=== PATIENT | female | born 1970 | race Caucasian/White ===

== ENCOUNTER 2022-07-18 00:16 | Day surgery (SDC) | payer OTHER, SELFPAY ==
[2022-07-09 08:33] VITALS: BMI 29.9
[2022-07-18 09:16] VITALS: BP 128/97; PULSE 70; RESP 16; TEMP 36.3; O2SAT 99; BMI 28.3
--- NOTE | 2022-07-18 09:24 | PM.HPGS ---
History of Present Illness History of Present Illness Consent: Risks, benefits, and alternatives have been discussed and questions answered. Patient agrees to proceed with procedure. Chief complaint: neoplasm screening Narrative: Eloisa Ruiz is a 52 year old female Referred for colon cancer screening. Review of Systems Review of Systems: All systems reviewed & are unremarkable except as noted in HPI and below PMFSH Past Medical History Medical History Encounter for IUD insertion 02/12/17 Mirena insertion Encounter for screening examination for sexually transmitted disease Herpes simplex type 1 antibody positive Hypertension Melanoma Paratubal cyst (~05/21/02) drained after c/s Remove/insert IUD Screening mammogram, encounter for Surgical History Surgical History History of 05/11/98 primary c/s Delonte size greater than dates 05/21/02 rpt c/s Bladimir no complications, drainage of paratubal cyst after c/s, as well of keloid scar revision at time of c/s History of dilation and curettage 12/12/16 suction d&c/exploratory lap/lt salpingectomy--POC, benign serous cystadenoma, benign tubal tissue History of exploratory laparotomy (12/12/16) suction d&c/exploratory lap/lt salpingectomy--POC, benign serous cystadenoma, benign tubal tissue History of gynecological procedure (03/05/22) mirena iud removal and reinsertion of new device History of local excision of skin lesion (~2009) melanoma removed from back History of unilateral salpingectomy (12/12/16) suction d&c/exploratory lap/lt salpingectomy--POC, benign serous cystadenoma, benign tubal tissue Family History Family History Father Acute myocardial infarction Grandparent Malignant tumor of ovary paternal grandmother Social History Social History Smoking status: Never smoker Alcohol intake: never Substance use: never Substance use type: does not use Living arrangements: with family Additional living arrangements comments: Occupation/Education: occupation Additional occupation/education comments: inventory control Gender identity (if verbalized by the patient): Female Sexual Orientation (if Verbalized by the Patient): Straight or Heterosexual Spiritual care concerns: No Meds Home Medications and Allergies Home Medications Medication Instructions Recorded Confirmed Type levonorgestrel 21 mcg/24 hours (8 1 device intrauterine ONCE 03/05/22 07/18/22 History yrs) 52 mg intrauterine device (Mirena) lisinopril 40 mg tablet 40 mg PO DAILY 03/05/22 07/18/22 History valacyclovir 500 mg tablet 500 mg PO DAILY 03/05/22 07/18/22 History amlodipine 5 mg tablet 5 mg PO DAILY 07/09/22 07/18/22 History hydrochlorothiazide 25 mg tablet 25 mg PO DAILY 07/09/22 07/18/22 History Allergies Allergy/AdvReac Type Severity Reaction Status Date / Time No Known Allergies Allergy Verified 07/18/22 09:11 Vital Signs Vital Signs - 24 hr 07/18/22 09:16 Temperature 36.3 C L Pulse Rate 70 Respiratory Rate 16 Blood Pressure 128/97 H Pulse Oximetry 99 Oxygen Delivery Room Air Exam Const: General: alert Orientation/consciousness: patient oriented x3 Resp: Auscultation: clear to auscultation bilaterally Cardio: Rhythm: regular rhythm GI: GI Palp: Yes Soft to palpation and No Tenderness to palpation present (GI) Neuro: General: patient oriented x3 Assessment and Plan Assessment and plan (1) Colon cancer screening: Code(s): Z12.11 - Encounter for screening for malignant neoplasm of colon Status: Acute Assessment and Plan: Colonoscopy with possible biopsy or polypectomy or cautery or injection of substances.
[2022-07-18] MEDS: LACTATED RINGERS 1,000 ML 150 ML IV CONT (09:25)
--- NOTE | 2022-07-18 09:31 | WPDANESEPPF ---
Anes - Initial Pre Proc Eval Procedure: Operation Date: 07/18/22 10:30 Proposed Procedures p Screening Colonoscopy - Corey Hernandez MD Date/Time: 07/18/22 09:31 Surgeon: Corey Hernandez MD Pre Op Diagnosis: neoplasm screening Patient Data Age: 52 Gender: F Height: 1.75 m Weight: 86.9 kg Last Vital Signs Temp 97.3 F L 07/18/22 09:16 Pulse 70 07/18/22 09:16 Resp 16 07/18/22 09:16 BP 128/97 H 07/18/22 09:16 Pulse Ox 99 07/18/22 09:16 O2 Del Method Room Air 07/18/22 09:16 Allergies Allergy/AdvReac Type Severity Reaction Status Date / Time No Known Allergies Allergy Verified 07/18/22 09:11 Home Medications Medication Instructions Recorded Confirmed Type levonorgestrel 21 mcg/24 hours (8 1 device intrauterine ONCE 03/05/22 07/18/22 History yrs) 52 mg intrauterine device (Mirena) lisinopril 40 mg tablet 40 mg PO DAILY 03/05/22 07/18/22 History valacyclovir 500 mg tablet 500 mg PO DAILY 03/05/22 07/18/22 History amlodipine 5 mg tablet 5 mg PO DAILY 07/09/22 07/18/22 History hydrochlorothiazide 25 mg tablet 25 mg PO DAILY 07/09/22 07/18/22 History Patient hx anesthesia problems: none Family hx anesthesia problems: none Results Review: All pre-operative results and documents have been reviewed as part of the pre-operative evaluation. [facility], [facility] Past Medical History Medical History Encounter for IUD insertion 02/12/17 Mirena insertion Encounter for screening examination for sexually transmitted disease Herpes simplex type 1 antibody positive Hypertension Melanoma Paratubal cyst (~05/21/02) drained after c/s Remove/insert IUD Screening mammogram, encounter for Surgical History Surgical History History of 05/11/98 primary c/s Delonte size greater than dates 05/21/02 rpt c/s Bladimir no complications, drainage of paratubal cyst after c/s, as well of keloid scar revision at time of c/s History of dilation and curettage 12/12/16 suction d&c/exploratory lap/lt salpingectomy--POC, benign serous cystadenoma, benign tubal tissue History of exploratory laparotomy (12/12/16) suction d&c/exploratory lap/lt salpingectomy--POC, benign serous cystadenoma, benign tubal tissue History of gynecological procedure (03/05/22) mirena iud removal and reinsertion of new device History of local excision of skin lesion (~2009) melanoma removed from back History of unilateral salpingectomy (12/12/16) suction d&c/exploratory lap/lt salpingectomy--POC, benign serous cystadenoma, benign tubal tissue Family History Family History Father Acute myocardial infarction Grandparent Malignant tumor of ovary paternal grandmother Social History Social History Smoking status: Never smoker Alcohol intake: never Substance use: never Substance use type: does not use Living arrangements: with family Additional living arrangements comments: Occupation/Education: occupation Additional occupation/education comments: inventory control Gender identity (if verbalized by the patient): Female Sexual Orientation (if Verbalized by the Patient): Straight or Heterosexual Spiritual care concerns: No Anes - Eval Final PreProcedure Day of Procedure 07/18/22 09:31 Patient weight: normal Heart: regular rate and rhythm Lungs: clear to auscultation Airway: Mallampati scale class II Neurological: alert and oriented Last oral intake: >/= 8 hours ASA classification: II Emergent: no Anesthetic plan: proceed Anesthesia type and monitoring: general GIVS and standard monitoring Results Review: All pre-operative results and documents have been reviewed as part of the pre-operative evaluation. Informed Consent: The patient's anesthetic plan and its at
[2022-07-18 10:16] VITALS: BP 107/69; PULSE 50; RESP 16; O2SAT 99
[2022-07-18 10:26] VITALS: BP 131/107; PULSE 68; RESP 32; O2SAT 100
[2022-07-18 10:36] VITALS: BP 123/89; PULSE 63; RESP 21; O2SAT 100
== END 2022-07-18 10:43 | disposition home or self-care (01) ==
PROVIDERS: PCP Internal Medicine; Visit Provider Internal Medicine Gastroenterology
PROC: 0DJD8ZZ Inspection of Lower Intestinal Tract, Via Natural or Artificial Opening Endoscopic (ICD-10-PCS; CPT 45378; principal; 2022-07-18 10:30)
DX: Z12.11 Encounter for screening for malignant neoplasm of colon (principal); I10 Essential (primary) hypertension; B00.9 Herpesviral infection, unspecified
CPT/HCPCS: 45378; J2704; J7120